=== PATIENT | female | born 1965 | race Caucasian/White ===

== ENCOUNTER 2023-07-17 08:13 | Outpatient (AMB) | payer OTHER, SELFPAY ==
[2023-07-17 09:16] VITALS: BP 138/70; PULSE 87; TEMP 37.4; O2SAT 97; BMI 34.5
--- NOTE | 2023-07-17 09:16 | MHC.OFFWIV ---
Intake Vital Signs 07/17/23 09:16 Height 5 ft 4 in Weight 91.285 kg BMI 34.5 BP 138/70 Blood Pressure Location Rt brachial Position Sitting Pulse 87 Pulse Source Pulse Oximeter Temp 99.4 F Temp Source Temporal Artery Scan Pulse Oximetry (%) 97 Oxygen Delivery Method Room Air Intake Visit Reasons: EP, cough [phone] Intake Note: pt is here for c/o cough and wheezing 4x days Patient Tobacco Use Status: Never used Tobacco Allergies oxycodone Allergy (Mild, Verified 07/17/23 09:17) Rash Do you need a note to return to daycare/school/sports/work: Yes HPI EP, cough [phone] HPI Details Patient presents with 4 days of cough and wheezing. She denies fever, chills, GI symptoms or chest pain, shortness of breath, upper respiratory congestion. Cough is mostly nonproductive. 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 Patient has no history of underlying asthma. She does note upper respiratory fraction approximately 2 months ago which required steroids. Home COVID test today was negative. [facility] Social History Patient Tobacco Use Status: Never used Tobacco Review of Systems Const Reports as per HPI and Reports no additional complaints ENT Reports no additional complaints and Reports as per HPI Card Reports as per HPI and Reports no additional complaints Resp Reports as per HPI and Reports no additional complaints GI Reports as per HPI and Reports no additional complaints Neuro Reports no additional complaints and Reports as per HPI Physical Exam Vital Signs: Last Vital Signs Temp 99.4 F 07/17/23 09:16 Pulse 87 07/17/23 09:16 BP 138/70 07/17/23 09:16 Pulse Ox 97 07/17/23 09:16 Oxygen Delivery Method Room Air 07/17/23 09:16 BMI result Body Mass Index 34.5 Const General: cooperative, comfortable and no acute distress Orientation/consciousness: patient oriented x3 HEENT Ears: TM's normal bilaterally General nose exam: Normal nasal mucous membranes and turbinates present Face and sinus: Yes normal facial exam and Yes sinuses nontender Mouth: Normal oral and palatal mucosa present Throat: Yes posterior oropharynx normal Neck Neck: Yes no lymphadenopathy Resp Effort & Inspection: normal respiratory effort Auscultation: clear to auscultation bilaterally (Intermittent wheeze of the left lower lobe) Cardio Rate: regular rate Rhythm: regular rhythm Heart sounds: S1 normal heart sound present and S2 normal heart sound present Neuro General: patient oriented x3 Assessment & Plan Assessment & Plan (1) Wheezing: Code(s): R06.2 - Wheezing (2) Viral syndrome: Code(s): B34.9 - Viral infection, unspecified Plan Viral swab collected today will report results as available. I have prescribed albuterol as well of 8 day prednisone taper patient continue to rest increase fluid intake. She has been given a work note for 3 days can return when feeling better. Return to clinic if not improving or any concerns. Orders: Orders SARS-CoV2/FLU/RSV Today B34.9 - Viral infection, unspecified Medications: New albuterol sulfate 90 mcg/actuation (ProAir HFA) 1 inh inhalation Q4-6H PRN 6.7 grams 0RF shortness of breath or wheezing prednisone 2 tabs daily x 4 days, then 1 tab daily days 5-8 20 mg PO DAILY 12 tabs 0RF 8 days Coding Level of Care Code Est Pt Level 3 (14336) Diagnoses Wheezing R06.2 Viral syndrome B34.9
== END 2023-07-17 09:39 | disposition home or self-care (01) ==
PROVIDERS: PCP Nurse Practitioner Family; Visit Provider Physician Assistant
DX: R06.2 Wheezing (principal); B34.9 Viral infection, unspecified
CPT/HCPCS: 99213

== ENCOUNTER 2023-07-17 09:37 | Outpatient (REF) | payer OTHER, SELFPAY ==
[2023-07-17 12:12] LABS: Influenza A PCR NEGATIVE (Negative); Influenza B PCR NEGATIVE (Negative); Resp Syncy Virus RNA Qual PCR NEGATIVE (Negative); SARS COV2 PCR INHOUSE NEGATIVE (Negative)
== END 2023-07-17 09:38 | disposition home or self-care (01) ==
LOC: HO.LAB 09:37
PROVIDERS: Visit Provider Physician Assistant
DX: Z11.52 Encounter for screening for COVID-19 (principal); Z20.822 Contact with and (suspected) exposure to COVID-19; B34.9 Viral infection, unspecified
CPT/HCPCS: 0241U